=== PATIENT | female | born 1995 | race African-American/Black ===

== ENCOUNTER 2016-04-10 16:24 | Emergency (ER) | payer OTHER ==
[~2016-04-10] VITALS: Ht 167.6 cm; Wt 60.0 kg
[~2016-04-10 16:24] MED LIST: FLAG500T PO; METR-1 PO
[2016-04-10 16:27] VITALS: BP 143/67; PULSE 89; RESP 12; TEMP 98.3; O2SAT 99
--- NOTE | 2016-04-10 17:03 | PD ---
HPI Chief Complaint: Back/ Neck Pain or Injury Time Seen by Provider: 17:03 Travel History International Travel<30 days: No Contact w/Intl Traveler<30days: No Traveled to known affect area: No History of Present Illness HPI 21-year-old female presents to the emergency Department with complaint of low back pain since last night. Has had back pain like this before. 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 Denies paresthesias, loss of sensation, decreased range of motion, decreased strength to bilateral lower extremities. Denies encopresis, incontinence, saddle anesthesias. Pain is aggravated with walking and movement. Took a Percocet with some relief of pain. Denies dysuria, urgency, frequency, hematuria. Denies IV drug use. Denies cancer. Denies fever, chills, nausea, vomiting. Allergies to Flagyl. History of asthma. No other modifying factors or associated signs and symptoms. PFSH Past Medical History Asthma: Yes Diminished Hearing: No Immunizations Current: Yes ?: Not Past Surgical History Eye Surgery: Yes (RIGHT EYE) Social History Alcohol Use: Yes (RARE) Tobacco Use: No Substance Use: No Allergies-Medications (Allergen,Severity, Reaction): Coded Allergies: Flagyl (Verified Allergy, Severe, 04/10/16) HIVES Reported Meds & Prescriptions Reported Meds & Active Scripts Active Flexeril (Cyclobenzaprine HCl) 10 Mg Tab 10 Mg PO TID PRN Ibuprofen 800 Mg Tab 800 Mg PO Q6HR PRN Flagyl (Metronidazole) 500 Mg Tab 1 Tab PO BID Flagyl (Metronidazole) 500 Mg Tab 500 Mg PO BID 7 Days Review of Systems Except as stated in HPI: all other systems reviewed are Neg Physical Exam Narrative GENERAL: Well-nourished, well-developed female patient, in no acute distress SKIN: Warm and dry. HEAD: Atraumatic. Normocephalic. EYES: Pupils equal and round. No scleral icterus. No injection or drainage. ENT: Mucosa pink and moist. Airway patent. NECK: Trachea midline. CARDIOVASCULAR: Regular rate. RESPIRATORY: No accessory muscle use. GASTROINTESTINAL: Flat. MUSCULOSKELETAL: Bilateral lower extremities supple and non-tense with 2+ pedal pulses and sensory intact; with full range of motion and 5/5 strength. 2 + DTRs. Active dorsiflexion and extension of bilateral feet. Bilateral straight leg raise is positive for low back pain; left worse than right. Ambulatory with guarded gait. Sitting up in bed at 90. No obvious deformities. No clubbing. No cyanosis. No edema. BACK: No CVA tenderness. No midline point tenderness on palpation of the lumbar or thoracic spine. Tenderness on palpation of bilateral iliosacral area and paraspinal lumbar areas. No obvious deformities. NEUROLOGICAL: Awake and alert. Oriented 3. No obvious cranial nerve deficits. Motor grossly within normal limits. Normal speech. Moves all extremities. 5/5 strength to all extremities. Sensory intact. PSYCHIATRIC: Appropriate mood and affect; insight and judgment normal. Data Data Last Documented VS Vital Signs Date Time Temp Pulse Resp B/P Pulse Ox O2 Delivery O2 Flow Rate FiO2 04/10/16 16:27 98.3 89 12 143/67 99 Room Air Orders Ibuprofen (Motrin) (04/10/16 17:15) Cyclobenzaprine (Flexeril) (04/10/16 17:15) Urinalysis - C+S If Indicated (04/10/16 17:04) Labs Laboratory Tests Test 04/10/16 17:45 Urine Color YELLOW Urine Turbidity CLEAR Urine pH 6.0 Urine Specific [place] 1.023 Urine Protein TRACE mg/dL Urine Glucose (UA) NEG mg/dL Urine Ketones NEG mg/dL Urine Occult Blood NEG Urine Nitrite NEG Urine Bilirubin NEG Urine Urobilinogen LESS THAN 2.0 MG/DL Urine Leukocyte Esterase TRACE Urine RBC 1 /hpf Urine WBC 1 /hpf Urine Squamous Epithelial 2 /hpf Cells Urine Mucus MANY /lpf Microscopic Urinalysis Comment CULT NOT INDICATED MDM Medical Decision Making Medical Screen Exam Complete: Yes Emergency Medical Condition: Yes Medical Record Reviewed: Yes Differential Diagnosis Lumbar strain, acute exacerbation of chronic low back pain, muscle spasms, sciatica, urinary tract infection, pyelonephritis Narrative Course 21-year-old female physical examination consistent with low back strain and muscle spasms. Denies encopresis, incontinence, saddle anesthesias. Denies fever, chills, nausea, vomiting. Patient is afebrile in the ER. Denies IV drug use. Denies cancer. Ibuprofen and Flexeril ordered. Denies urinary symptoms. Urinalysis ordered to r/o UTI. 1825: Urinalysis with no signs of infection. Flexeril and ibuprofen prescribed for home. Patient is medically cleared and stable for discharge. Discussed reasons to return to the emergency department. Instructed patient to follow up with primary care provider. Patient agrees with treatment plan. The patients vital signs are stable and the patient is stable for outpatient follow- up and treatment. Patient discharged home, stable and in no acute distress. Diagnosis Primary Impression: Low back strain Qualified Code: S39.012A - Low back strain, initial encounter Additional Impression: Muscle spasm Referrals: Primary Care Physician Patient Instructions: General Instructions, Low Back Strain (ED) Departure Forms: School Release, Tests/Procedures, Work Release Enter return to work date: Apr 13, 2016 Additional Instructions: Tylenol or ibuprofen as directed and as needed for pain Flexeril as prescribed and as needed for muscle spasms Heating pad and/or ice to affected area to reduce pain Avoid aggravating activities; increase activity as tolerated Follow-up with primary care provider Return to emergency department immediately with worsening of symptoms Med/Other Pt SpecificInfo: Prescription(s) given Scripts Cyclobenzaprine (Flexeril)10 Mg Tab10 Mg PO TID PRN (MUSCLE SPASM) #30 TAB Ref 0 Prov:Nohemy Mckeon 04/10/16 Ibuprofen 800 Mg [id number] Mg PO Q6HR PRN (PAIN) #30 TAB Ref 0 Prov:Nohemy Mckeon 04/10/16 Disposition: 01 DISCHARGE HOME Condition: Stable Nohemy Mckeon Apr 10, 2016 17:03
[2016-04-10] MEDS ORDERED: IBUPROFEN 800 MG TAB PO ONE (17:15)
[2016-04-10] MEDS ORDERED: CYCLOBENZAPRINE HCL 10 MG TAB PO ONE (17:15)
[2016-04-10] MEDS ORDERED: IBUP800T23 PO (17:16)
[2016-04-10] MEDS ORDERED: CYCL1TAB29 PO (17:16)
[2016-04-10 18:18] LABS: BLOOD, URINE NEG (NEG); COMMENT (UR) CULT NOT INDICATED; CULTURE IF INDICATED CULT NOT INDICATED; GLUCOSE,URINE NEG (NEG); KETONE, URINE NEG (NEG); MUCUS URINE MANY /lpf (OCC); NITRITE,URINE NEG (NEG); SQUAMOUS EPITHELIAL CELL URINE 2 /hpf (0-5); URINE COLOR YELLOW (YELLW/STRAW)
== END 2016-04-10 18:39 | disposition home or self-care (01) ==
LOC: NEPB 16:24
DX: S39.012A Strain of muscle, fascia and tendon of lower back, initial encounter (principal); M62.830 Muscle spasm of back; Z87.09 Personal history of other diseases of the respiratory system; Y93.41 Activity, dancing
CPT/HCPCS: 81001; 99283

== ENCOUNTER 2016-05-14 00:49 | Emergency (ER) | payer OTHER ==
[~2016-05-14] VITALS: Ht 167.6 cm; Wt 61.5 kg
[~2016-05-14 00:49] MED LIST changes: +CYCL1TAB29 PO; +IBUP800T23 PO
[2016-05-14 00:52] VITALS: BP 126/82; PULSE 75; RESP 16; TEMP 98.2; O2SAT 98
--- NOTE | 2016-05-14 00:59 | PD ---
HPI Chief Complaint: Injury Time Seen by Provider: 00:59 Travel History International Travel<30 days: No Contact w/Intl Traveler<30days: No Traveled to known affect area: No History of Present Illness HPI 21-year-old female presents to emergency department for evaluation right great toe pain. Patient states she struck it on a step yesterday. It has been painful since. States pain is exacerbated by movement or touch. At rest it is 6 out of 10. She has no other symptoms to report. PFSH Past Medical History Asthma: Yes Diminished Hearing: No Immunizations Current: Yes ?: Not LMP: 04/29/16 Past Surgical History Eye Surgery: Yes (RIGHT EYE) Social History Alcohol Use: Yes (OCC) Tobacco Use: No Substance Use: No Allergies-Medications (Allergen,Severity, Reaction): Coded Allergies: Flagyl (Verified Allergy, Severe, 05/14/16) HIVES Reported Meds & Prescriptions Reported Meds & Active Scripts Active Ibuprofen 800 Mg Tab 800 Mg PO Q8H PRN Review of Systems Except as stated in HPI: all other systems reviewed are Neg Physical Exam Narrative GENERAL: Well-nourished, well-developed patient. SKIN: Warm and dry. HEAD: Normocephalic. EYES: No scleral icterus. No injection or drainage. NECK: Supple, trachea midline. No JVD or lymphadenopathy. CARDIOVASCULAR: Regular rate and rhythm without murmurs, gallops, or rubs. RESPIRATORY: Breath sounds equal bilaterally. No accessory muscle use. MUSCULOSKELETAL: No cyanosis, or edema. Right great toe is without deformity. There is no obvious edema or erythema. The toenail of the right great toe does seem partially avulsed but it remains in place. Lead. No erythema or edema. Data Data Last Documented VS Vital Signs Date Time Temp Pulse Resp B/P Pulse Ox O2 Delivery O2 Flow Rate FiO2 05/14/16 01:03 20 05/14/16 00:52 98.2 75 126/82 98 Room Air Orders Toe (Min 2vws) (05/14/16 ) [facility] Medical Decision Making Medical Screen Exam Complete: Yes Emergency Medical Condition: Yes Medical Record Reviewed: Yes Differential Diagnosis Fracture versus sprain versus contusion versus dislocation Narrative Course 21-year-old female presents to emergency department for evaluation right great toe pain. X-ray imaging is without acute bony abnormality. The toenail may be partially avulsed. I have counseled the patient on care. She agrees to return immediately with any acute worsening of symptoms. Diagnosis Primary Impression: Nail avulsion, toe Qualified Code: S91.209A - Nail avulsion, toe, initial encounter Additional Impression: Sprain, IP, toe, great, right Qualified Code: S93.511A - Sprain, IP, toe, great, right, initial encounter Referrals: Primary Care Physician Patient Instructions: General Instructions, Nail Avulsion (ED) Additional Instructions: You will likely lose your toenail Use extreme caution as you're great toenail is partially avulsed Ice and elevate to reduce. Follow-up with primary care provider Return immediately to the emergency department with any acute worsening symptoms Med/Other Pt SpecificInfo: Prescription(s) given Scripts Ibuprofen 800 Mg [id number] Mg PO Q8H PRN (Pain/Inflammation) #30 TAB Ref 0 Prov:Lila Gross 05/14/16 Disposition: 01 DISCHARGE HOME Condition: Stable Lila Gross May 14, 2016 00:59
--- NOTE | 2016-05-14 02:02 | RADRPT ---
EXAM DATE/TIME: 05/14/2016 01:06 [facility] COMPARISON: No previous studies available for comparison. INDICATIONS : Patient states she hit her toe on the stairs, pain. MEDICAL HISTORY : None. SURGICAL HISTORY : None. ENCOUNTER: Initial ACUITY: 2 days PAIN SCORE: 5/10 LOCATION: Right Foot, Great Toe FINDINGS: Examination of the first digit of the right foot demonstrates no evidence of fracture or dislocation. No radiopaque foreign bodies are seen. The soft tissues are intact. CONCLUSION: No acute fracture. The great toenail may be partially avulsed. Juan Jose Mcdaniel MD on May 14, 2016 at 1:59 Board Certified Radiologist. This report was verified electronically.
[2016-05-14] MEDS ORDERED: IBUP800T23 PO (02:31)
== END 2016-05-14 02:37 | disposition home or self-care (01) ==
LOC: NEPA 00:49
DX: S91.209A Unspecified open wound of unspecified toe(s) with damage to nail, initial encounter (principal); S93.511A Sprain of interphalangeal joint of right great toe, initial encounter; W22.8XXA Striking against or struck by other objects, initial encounter; Y92.9 Unspecified place or not applicable; Y99.9 Unspecified external cause status
CPT/HCPCS: 73660; 99283

== ENCOUNTER 2016-06-14 23:09 | Emergency (ER) | payer OTHER ==
[~2016-06-14] VITALS: Ht 167.6 cm; Wt 61.0 kg
[~2016-06-14 23:09] MED LIST changes: -CYCL1TAB29 PO; -FLAG500T PO; -METR-1 PO
[2016-06-14 23:12] VITALS: BP 115/89; PULSE 82; RESP 16; TEMP 98.3; O2SAT 99
[2016-06-15] MEDS ORDERED: ALBU2TAB4 PO (03:06)
[2016-06-15 03:07] VITALS: BP 128/72; PULSE 107; RESP 18; O2SAT 100
[2016-06-15 04:13] LABS: AUTOMATED NEUTROPHIL # 3.4 TH/MM3 (1.8-7.7); BASOPHIL % 0.7 % (0.0-2.0); EOSINOPHIL % 0.6 % (0.0-4.0); HEMATOCRIT 34.7 % (35.0-46.0); HEMO FLAGS DIFF FINAL; LYMPH % 12.2 % (9.0-44.0); LYMPHOCYTE # 0.6 TH/MM3 (1.0-4.8); MEAN CELL VOLUME 84.6 FL (80.0-100.0); MEAN CORPUSCULAR HEMOGLOBIN 28.3 PG (27.0-34.0); MEAN CORPUSCULAR HGB CONC 33.4 % (32.0-36.0); MONO % 15.7 % (0.0-8.0); NEUT % 70.8 % (16.0-70.0); PLATELET COUNT 401 TH/MM3 (150-450); RED CELL DISTRIBUTION WIDTH 16.1 % (11.6-17.2); WHITE BLOOD COUNT 4.9 TH/MM3 (4.0-11.0)
[2016-06-15 04:34] LABS: ANION GAP 9 MEQ/L (5-15); BICARBONATE 25.2 MEQ/L (21.0-32.0); BLOOD UREA NITROGEN 8 MG/DL (7-18); CHLORIDE 105 MEQ/L (98-107); GLOMERULAR FILTRATION RATE 89 ML/MIN (>89); POTASSIUM 3.8 MEQ/L (3.5-5.1); SODIUM (NA) 139 MEQ/L (136-145)
--- NOTE | 2016-06-15 04:35 | RADRPT ---
EXAM DATE/TIME: 06/15/2016 03:32 [facility] COMPARISON: No previous studies available for comparison. INDICATIONS : Chest pain and shortness of breath. MEDICAL HISTORY : Asthma. SURGICAL HISTORY : None. ENCOUNTER: Initial ACUITY: 1 day PAIN SCORE: 3/10 LOCATION: chest FINDINGS: Portable AP view of the chest demonstrates a normal-sized cardiac silhouette. No effusion, consolidat ion, or pneumothorax is visualized. The bones and soft tissues demonstrate no acute abnormality. CONCLUSION: No acute cardiopulmonary abnormality is identified. Bulmaro Sahu MD on June 15, 2016 at 4:33 Board Certified Radiologist. This report was verified electronically.
[2016-06-15] MEDS ORDERED: IBUPROFEN 600 MG TAB PO ONE (05:30)
--- NOTE | 2016-06-15 05:34 | PD ---
HPI Chief Complaint: Respiratory Symptoms Time Seen by Provider: 03:08 Travel History International Travel<30 days: No Contact w/Intl Traveler<30days: No Traveled to known affect area: No History of Present Illness HPI 21yo F with PMH of asthma presents to the ED with c/o throat pain, generalized pain and cough. Pt states she has chest pain and sob when she coughs. Denies any fever, n/v, abdominal pain, history of PE/DVT. PFSH Past Medical History Asthma: Yes Diminished Hearing: No Respiratory: Yes (ASTHMA) Immunizations Current: Yes Tetanus Vaccination: < 5 Years Influenza Vaccination: No ?: Not LMP: 2 WEEKS AGO Past Surgical History Eye Surgery: Yes (RIGHT EYE) Social History Alcohol Use: Yes (OCC) Tobacco Use: No Substance Use: No Allergies-Medications (Allergen,Severity, Reaction): Coded Allergies: Flagyl (Verified Allergy, Severe, 06/15/16) HIVES Reported Meds & Prescriptions Reported Meds & Active Scripts Active Ibuprofen 600 Mg Tab 600 Mg PO Q8HR PRN Ibuprofen 800 Mg Tab 800 Mg PO Q8H PRN Reported Albuterol (Albuterol Sulfate) 2 Mg Tab 2 Mg PO TID Review of Systems Except as stated in HPI: all other systems reviewed are Neg Physical Exam Narrative GENERAL: 21yo F not in distress. SKIN: Focused skin assessment warm/dry. HEAD: Atraumatic. Normocephalic. EYES: Pupils equal and round. No scleral icterus. No injection or drainage. ENT: Throat: Clear. Uvula midline. NECK: Trachea midline. No JVD. CARDIOVASCULAR: Regular rate and rhythm. No murmur appreciated. RESPIRATORY: No accessory muscle use. Clear to auscultation. Breath sounds equal bilaterally. GASTROINTESTINAL: Abdomen soft, non-tender, nondistended. MUSCULOSKELETAL: No obvious deformities. No clubbing. No cyanosis. No edema. NEUROLOGICAL: Awake and alert. No obvious cranial nerve deficits. Motor grossly within normal limits. Normal speech. PSYCHIATRIC: Appropriate mood and affect; insight and judgment normal. Data Data Last Documented VS Vital Signs Date Time Temp Pulse Resp B/P Pulse Ox O2 Delivery O2 Flow Rate FiO2 06/15/16 03:07 107 18 128/72 100 Room Air 06/14/16 23:12 98.3 Orders Complete Blood Count With Diff (06/15/16 03:28) Basic Metabolic Panel (Bmp) (06/15/16 03:28) Troponin I (06/15/16 03:28) D-Dimer (06/15/16 03:28) Chest, Single Ap (06/15/16 ) Electrocardiogram (06/15/16 ) Ibuprofen (Motrin) (06/15/16 05:30) Labs Laboratory Tests Test 06/15/16 04:00 White Blood Count 4.9 TH/MM3 Red Blood Count 4.10 MIL/MM3 Hemoglobin 11.6 GM/DL Hematocrit 34.7 % Mean Corpuscular Volume 84.6 FL Mean Corpuscular Hemoglobin 28.3 PG Mean Corpuscular Hemoglobin 33.4 % Concent Red Cell Distribution Width 16.1 % Platelet Count 401 TH/MM3 Mean Platelet Volume 7.3 FL Neutrophils (%) (Auto) 70.8 % Lymphocytes (%) (Auto) 12.2 % Monocytes (%) (Auto) 15.7 % Eosinophils (%) (Auto) 0.6 % Basophils (%) (Auto) 0.7 % Neutrophils # (Auto) 3.4 TH/MM3 Lymphocytes # (Auto) 0.6 TH/MM3 Monocytes # (Auto) 0.8 TH/MM3 Eosinophils # (Auto) 0.0 TH/MM3 Basophils # (Auto) 0.0 TH/MM3 CBC Comment DIFF FINAL Differential Comment D-Dimer Quantitative (PE/DVT) 0.25 MG/L FEU Sodium Level 139 MEQ/L Potassium Level 3.8 MEQ/L Chloride Level 105 MEQ/L Carbon Dioxide Level 25.2 MEQ/L Anion Gap 9 MEQ/L Blood Urea Nitrogen 8 MG/DL Creatinine 0.94 MG/DL Estimat Glomerular Filtration 89 ML/MIN Rate Random Glucose 86 MG/DL Calcium Level 8.6 MG/DL Troponin I LESS THAN 0.02 NG/ML MDM Medical Decision Making Medical Screen Exam Complete: Yes Emergency Medical Condition: Yes Interpretation(s) EKG: NSR 95bpm. Normal axis. No ST segment elevation or depression. Laboratory Tests Test 06/15/16 04:00 White Blood Count 4.9 TH/MM3 (4.0-11.0) Red Blood Count 4.10 MIL/MM3 (4.00-5.30) Hemoglobin 11.6 GM/DL (11.6-15.3) Hematocrit 34.7 % (35.0-46.0) Mean Corpuscular Volume 84.6 FL (80.0-100.0) Mean Corpuscular Hemoglobin 28.3 PG (27.0-34.0) Mean Corpuscular Hemoglobin 33.4 % Concent (32.0-36.0) Red Cell Distribution Width 16.1 % (11.6-17.2) Platelet Count 401 TH/MM3 (150-450) Mean Platelet Volume 7.3 FL (7.0-11.0) Neutrophils (%) (Auto) 70.8 % (16.0-70.0) Lymphocytes (%) (Auto) 12.2 % (9.0-44.0) Monocytes (%) (Auto) 15.7 % (0.0-8.0) Eosinophils (%) (Auto) 0.6 % (0.0-4.0) Basophils (%) (Auto) 0.7 % (0.0-2.0) Neutrophils # (Auto) 3.4 TH/MM3 (1.8-7.7) Lymphocytes # (Auto) 0.6 TH/MM3 (1.0-4.8) Monocytes # (Auto) 0.8 TH/MM3 (0-0.9) Eosinophils # (Auto) 0.0 TH/MM3 (0-0.4) Basophils # (Auto) 0.0 TH/MM3 (0-0.2) CBC Comment DIFF FINAL Differential Comment D-Dimer Quantitative (PE/DVT) 0.25 MG/L FEU (0.00-0.50) Sodium Level 139 MEQ/L (136-145) Potassium Level 3.8 MEQ/L (3.5-5.1) Chloride Level 105 MEQ/L (98-107) Carbon Dioxide Level 25.2 MEQ/L (21.0-32.0) Anion Gap 9 MEQ/L (5-15) Blood Urea Nitrogen 8 MG/DL (7-18) Creatinine 0.94 MG/DL (0.50-1.00) Estimat Glomerular Filtration 89 ML/MIN (>89) Rate Random Glucose 86 MG/DL (74-106) Calcium Level 8.6 MG/DL (8.5-10.1) Troponin I LESS THAN 0.02 NG/ML (0.02-0.05) Last Impressions Chest X-Ray 06/15/16 0000 Signed Impressions: Service Date/Time: Wednesday, June 15, 2016 03:32 - CONCLUSION: No acute cardiopulmonary abnormality is identified. Bulmaro Sahu MD Differential Diagnosis Viral syndrome vs. pneumonia Narrative Course 21yo well appearing female with atypical chest pain. Pt is not wheezing but have history of asthma. States she feels better now and does not want a treatment but would like a prescription for inhaler. Labs reviewed, no leukocytosis. Troponin negative. D-dimer negative. Pt given ibuprofen for pain. Return precautions given. Diagnosis Primary Impression: Atypical chest pain Patient Instructions: General Instructions Departure Forms: Tests/Procedures Additional Instructions: Please follow up with your PMD in 3-7 days. Return to the ED if symptoms worsen. Med/Other Pt SpecificInfo: Prescription(s) given Scripts Albuterol 18 GM Inh (Ventolin Hfa 18 GM Inh)90 Mcg/Act Aer2 Puff INH Q4H PRN ( SHORTNESS OF BREATH) #1 INHALER Ref 0 Prov:Telma Mccollum DO 06/15/16 Ibuprofen 600 Mg [id number] Mg PO Q8HR PRN (PAIN) #20 TAB Ref 0 Prov:Telma Mccollum DO 06/15/16 Disposition: 01 DISCHARGE HOME Condition: Stable Telma Mccollum DO Jun 15, 2016 05:34
[2016-06-15] MEDS ORDERED: IBUP-232 PO (05:44)
[2016-06-15] MEDS ORDERED: VENTAER INH (05:52)
--- NOTE | 2016-06-15 16:27 | EKG ---
Date Performed: 06/15/2016 Time Performed: 04:08:45 PTAGE: 21 years EKG: Sinus rhythm POSSIBLE LEFT ATRIAL ENLARGEMENT BORDERLINE ECG NO PREVIOUS TRACING DOCTOR: Catia Burnham Interpretating Date/Time 06/15/2016 16:22:44
== END 2016-06-15 06:24 | disposition home or self-care (01) ==
LOC: NEPC 23:09
DX: R07.89 Other chest pain (principal); R07.0 Pain in throat; R05 Cough; R06.02 Shortness of breath; R94.31 Abnormal electrocardiogram [ECG] [EKG]; Z87.09 Personal history of other diseases of the respiratory system
CPT/HCPCS: 71010; 80048; 84484; 85025; 85379; 93005